=== PATIENT | female | born 1960 | race Caucasian/White ===

== ENCOUNTER 2018-05-17 17:55 | Emergency (ER) | payer MEDICAID ==
[~2018-05-17] VITALS: Ht 170.2 cm; Wt 80.0 kg
[~2018-05-17 17:55] MED LIST: CLIN300C85 PO; DIPH-423 PO; FURO-150 PO; PRED50TA PO
[2018-05-17] MEDS ORDERED: HYDROcodone/acetaminophen 5mg/325mg tablet PO ONE (19:20)
[2018-05-17 21:06] VITALS: BP 146/67
== END 2018-05-17 21:10 | disposition home or self-care (01) ==
LOC: ER 17:56
DX: S92.342A Displaced fracture of fourth metatarsal bone, left foot, initial encounter for closed fracture (principal); Z88.8 Allergy status to other drugs, medicaments and biological substances; Z79.899 Other long term (current) drug therapy; W01.0XXA Fall on same level from slipping, tripping and stumbling without subsequent striking against object, initial encounter; Y93.89 Activity, other specified; Y92.89 Other specified places as the place of occurrence of the external cause; Y99.8 Other external cause status
CPT/HCPCS: 29515; 73610; 73630; 99284; A6449

== ENCOUNTER 2018-05-26 10:33 | Outpatient (CLI) | payer MEDICAID ==
[2018-05-26 10:43] VITALS: BP 148/87
== END 2018-05-26 11:25 | disposition home or self-care (01) ==
LOC: ORTHO 10:33
PROVIDERS: ATTEND Nurse Practitioner Family
DX: S92.515A Nondisplaced fracture of proximal phalanx of left lesser toe(s), initial encounter for closed fracture (principal); S93.432A Sprain of tibiofibular ligament of left ankle, initial encounter; F17.210 Nicotine dependence, cigarettes, uncomplicated; Z88.8 Allergy status to other drugs, medicaments and biological substances; X58.XXXA Exposure to other specified factors, initial encounter; Y93.89 Activity, other specified; Y92.89 Other specified places as the place of occurrence of the external cause; Y99.8 Other external cause status
CPT/HCPCS: 73610; 73660; 99213; L4360

== ENCOUNTER 2018-06-16 13:28 | Outpatient (CLI) | payer MEDICAID ==
[2018-06-16 13:28] VITALS: BP 133/76
== END 2018-06-16 14:03 | disposition home or self-care (01) ==
LOC: ORTHO 13:28
PROVIDERS: ATTEND Nurse Practitioner Family
DX: S92.515D Nondisplaced fracture of proximal phalanx of left lesser toe(s), subsequent encounter for fracture with routine healing (principal); S93.432D Sprain of tibiofibular ligament of left ankle, subsequent encounter; F17.200 Nicotine dependence, unspecified, uncomplicated; Z88.8 Allergy status to other drugs, medicaments and biological substances; Z60.2 Problems related to living alone; X58.XXXD Exposure to other specified factors, subsequent encounter
CPT/HCPCS: 73630; 99213

== ENCOUNTER → 2018-07-14 | Outpatient (CLI) | payer MEDICAID ==
[2018-07-14 13:33] VITALS: BP 149/91
== END | disposition home or self-care (01) ==
LOC: ORTHO 13:30
PROVIDERS: ATTEND Nurse Practitioner Family
DX: S92.505D Nondisplaced unspecified fracture of left lesser toe(s), subsequent encounter for fracture with routine healing (principal); S93.432D Sprain of tibiofibular ligament of left ankle, subsequent encounter; F17.210 Nicotine dependence, cigarettes, uncomplicated; Z60.2 Problems related to living alone; Z88.1 Allergy status to other antibiotic agents; W01.0XXD Fall on same level from slipping, tripping and stumbling without subsequent striking against object, subsequent encounter
CPT/HCPCS: 73630; 99213

== ENCOUNTER 2021-12-12 19:47 | Emergency (ER) | payer MEDICAID ==
[~2021-12-12 19:47] MED LIST changes: +CLIN-97 PO; -CLIN300C85 PO
== END 2021-12-12 21:23 | disposition left against medical advice (07) ==
LOC: ER 19:48
DX: L08.9 Local infection of the skin and subcutaneous tissue, unspecified (principal); Z53.21 Procedure and treatment not carried out due to patient leaving prior to being seen by health care provider